=== PATIENT | female | born 1990 | race Caucasian/White ===

== ENCOUNTER 2018-11-02 20:10 | Emergency (ER) | payer OTHER ==
--- NOTE | 2018-11-02 20:29 | PDOC ---
History of Present Illness - General Chief Complaint: Vaginal Bleeding Stated Complaint: 14 WKS/BLEEDING
[2018-11-02 20:36] VITALS: BP 116/76; PULSE 100; TEMP 98.8; BMI 35.2
[2018-11-02 21:26] LABS: BASO % 0.2 % (0-2.0); EOS % 0.5 % (0-4.5); HEMATOCRIT 35.4 % (32.4-45.2); HEMOGLOBIN 11.5 GM/dL (10.7-15.3); LYMPH % 9.3 % (8-40); MCH 25.6 pg (25.7-33.7); MCHC 32.6 g/dl (32.0-36.0); MEAN CELL VOLUME 78.6 fl (80-96); MEAN PLT VOLUME 7.7 fl (7.5-11.1); MONO % 3.9 % (3.8-10.2); NEUT % 86.1 % (42.8-82.8); PLATELET COUNT 370 K/MM3 (134-434); RDW 15.9 % (11.6-15.6); WHITE BLOOD COUNT 13.6 K/mm3 (4.0-10.0)
[2018-11-02 22:39] LABS: EPI CELLS 3.2 /HPF (0-5/HPF); HYALINE CASTS 2 /lpf (0-8); URINE APPEARANCE CLOUDY; URINE BILIRUBIN NEGATIVE (NEGATIVE); URINE COLOR RED; URINE GLUCOSE (UA) NEGATIVE (NEGATIVE); URINE KETONE 1+ (NEGATIVE); URINE LEUK ESTERASE 2+ (NEGATIVE); URINE NITRITE NEGATIVE (NEGATIVE); URINE PROTEIN NEGATIVE (NEGATIVE); URINE RBC 1402 /hpf (0-4); URINE UROBILINOGEN 0.2 mg/dL (0.2-1.0); URINE WBC 24 /hpf (0-5)
[2018-11-02] MEDS ORDERED: ACETAMINOPHEN 500 MG TABLET (FP) PO STA (23:34)
[2018-11-02] MEDS ORDERED: CEPHALEXIN MONOHYDRATE 500 MG CAPSULE (UD) ONE (23:34)
[2018-11-02] MEDS ORDERED: ACETAMINOPHEN 325 MG TABLET (FP) ONE (23:34)
--- NOTE | 2018-11-02 23:47 | PDOC ---
Documentation entered by India Marino SCRIBE, acting as scribe for Tran Serna MD. Tran Serna MD: This documentation has been prepared by the anaibe, India Marino SCRIBE, under my direction and personally reviewed by me in its entirety. I confirm that the documentation accurately reflects all work, treatment, procedures, and medical decision making performed by me. History of Present Illness - General Chief Complaint: Vaginal Bleeding Stated Complaint: 14 WKS/BLEEDING Time Seen by Provider: 11/02/18 20:29 History Source: Patient Exam Limitations: No Limitations - History of Present Illness Initial Comments: 11/02/18 21:01 The patient is a 28-year-old female, , with no reported past medical history who presents to the emergency department with a day history of vaginal bleeding. The patient reports earlier today, she started to have abdominal cramping, followed up vaginal bleeding. The patient reports the bleeding was associated with large clot passing. Denies fever or chills. LMP: Beginning of July Allergies: NKDA Surgical history: None reported MEDICAL INTERPRETER: [facility]. Past History - Past Medical History Allergies/Adverse Reactions: Allergies Allergy/AdvReac Type Severity Reaction Status Date / Time No Known Allergies Allergy Verified 11/02/18 20:31 Home Medications: Ambulatory Orders Cephalexin Monohydrate [Keflex -] 500 mg PO BID #14 capsule 11/02/18 Review of Systems - Review of Systems Able to Perform ROS?: Yes Comments:: 11/02/18 21:07 CONSTITUTIONAL: Absent: fever, chills, diaphoresis, generalized weakness, malaise, loss of appetite HEENT: Absent: rhinorrhea, nasal congestion, throat pain, throat swelling, difficulty swallowing, mouth swelling, ear pain, eye pain, visual Changes CARDIOVASCULAR: Absent: chest pain, syncope, palpitations, irregular heart rate, lightheadedness , peripheral edema RESPIRATORY: Absent: cough, shortness of breath, dyspnea with exertion, orthopnea, wheezing, stridor, hemoptysis GASTROINTESTINAL: Absent: abdominal pain, abdominal distension, nausea, vomiting, diarrhea, constipation, melena, hematochezia GENITOURINARY: +vaginal bleeding. Absent: dysuria, frequency, urgency, hesitancy, hematuria, flank pain, genital pain MUSCULOSKELETAL: Absent: myalgia, arthralgia, joint swelling SKIN: Absent: rash, itching, pallor HEMATOLOGIC/IMMUNOLOGIC: Absent: easy bleeding, easy bruising, lymphadenopathy, frequent infections ENDOCRINE: Absent: unexplained weight gain, unexplained weight loss, heat intolerance, cold intolerance NEUROLOGIC: Absent: headache, focal weakness or paresthesias, dizziness, unsteady gait, seizure, mental status changes, bladder or bowel incontinence PSYCHIATRIC: Absent: anxiety, depression, suicidal or homicidal ideation, hallucinations. *Physical Exam - Vital Signs Last Vital Signs Temp Pulse Resp BP Pulse Ox 98.8 F 100 H 17 116/76 100 11/02/18 20:20 11/02/18 20:20 11/02/18 20:20 11/02/18 20:20 11/02/18 20:20 - Physical Exam Comments: 11/02/18 21:01 GENERAL: Well developed, well nourished. Awake and alert. No acute distress. HEENT: Normocephalic, atraumatic. PERRLA, EOMI. No conjunctival pallor. Sclera are non- icteric. Moist mucous membranes. Oropharynx is clear. NECK: Supple. Full ROM. No JVD. Carotid pulses 2+ and symmetric, without bruits. No thyromegaly. No lymphadenopathy. CARDIOVASCULAR: +tachycardia Regular rate. No murmurs, rubs, or gallops. Distal pulses are 2+ and symmetric. PULMONARY: No evidence of respiratory distress. Lungs clear to auscultation bilaterally. No wheezing, rales or rhonchi. ABDOMINAL: Soft. Non-tender. Non-distended. No rebound or guarding. : +Vaginal bleeding with clot passing. MUSCULOSKELETAL Normal range of motion at all joints. No bony deformities or tenderness. No CVA tenderness. EXTREMITIES: No cyanosis. No clubbing. No edema. No calf tenderness. SKIN: Warm and dry. Normal capillary refill. No rashes. No jaundice. NEUROLOGICAL: Alert, awake, appropriate. Cranial nerves 2-12 intact. PSYCHIATRIC: Cooperative. Good eye contact. Appropriate mood and affect. ED Treatment Course - LABORATORY CBC & Chemistry Diagram: 11/02/18 21:10 - ADDITIONAL ORDERS Additional order review: Laboratory Results 11/02/18 11/02/18 11/02/18 22:27 21:10 21:10 Beta HCG, Quant .4 Urine Color Red Urine Appearance Cloudy Urine pH 7.0 Ur Specific [place] 1.007 L Urine Protein Negative Urine Glucose (UA) Negative Urine Ketones 1+ H Urine Blood 3+ H Urine Nitrite Negative Urine Bilirubin Negative Urine Urobilinogen 0.2 Ur Leukocyte Esterase 2+ H Urine WBC (Auto) 24 Urine RBC (Auto) 1402 Urine Casts (Auto) 2 U Epithel Cells (Auto) 3.2 Urine Bacteria (Auto) 10.0 Blood Type B POSITIVE Antibody Screen Negative 11/02/18 21:10 RBC 4.50 MCV 78.6 L MCHC 32.6 RDW 15.9 H MPV 7.7 Neutrophils % 86.1 H Lymphocytes % 9.3 Monocytes % 3.9 Eosinophils % 0.5 Basophils % 0.2 - RADIOLOGY Radiology Studies Ordered: Category Date Time Status TRANSVAGINAL US PREG [US] Stat Ultrasound 11/02/18 20:33 Taken Medical Decision Making - Medical Decision Making 11/02/18 23:02 -year-old female states that she passed tissue earlier today at home. this 28 yo female reports LMP in July and sees assistant credit manager at [facility] across the [address] PMH : blood type B positive cbc no significant anemia UA + hemauria , +2 leuk,24,000 wbc 11/02/18 23:35 transvaginal ultrasound shows a thickened endometrium, but no intrauterine at this time. Small right ovarian cyst. Clinical, laboratory correlation follow-up ultrasound is recommended. There is no evidence of adnexal masses or free pelvic fluid collections 11/02/18 23:37 the pt reports having an MEDICAL INTERPRETER ultrasound within the month that showed an intrauterine . Given her symptoms of cramping and passing tissue , this is a mscarriage pt vaginal bleeding is controlled, no further clots passed while in ED She'll be referred back to her MEDICAL INTERPRETER imp miscarriage/threatened AB, UTI RX keflex *DC/Admit/Observation/Transfer Diagnosis at time of Disposition: Threatened , Spontaneous miscarriage - Discharge Dispostion Disposition: HOME Condition at time of disposition: Good - Prescriptions Prescriptions: Cephalexin Monohydrate [Keflex -] 500 mg PO BID #14 capsule - Referrals Referrals: Roxy Murphy DO [Staff Physician] - - Patient Instructions Printed Discharge Instructions: DI for Miscarriage, DI for Threatened Additional Instructions: please call your assistant credit manager tomorrow for a follow up appointment please brass pickler your antibiotics at your pharmacy Return for heavy vaginal bleeding - Post Discharge Activity
== END 2018-11-02 23:48 | disposition home or self-care (01) ==
LOC: JER 20:10
DX: O26.892 Other specified pregnancy related conditions, second trimester (principal); O02.1 Missed abortion; O23.42 Unspecified infection of urinary tract in pregnancy, second trimester; O34.82 Maternal care for other abnormalities of pelvic organs, second trimester; N83.291 Other ovarian cyst, right side; Z3A.14 14 weeks gestation of pregnancy
CPT/HCPCS: 36415; 76817-TC; 81003; 84702; 85025; 86850; 86900; 86901; 99282-25

== ENCOUNTER 2018-11-06 17:09 | Emergency (ER) | payer OTHER ==
[2018-11-06 17:30] VITALS: BMI 33.2
--- NOTE | 2018-11-06 18:32 | PDOC ---
History of Present Illness - General Chief Complaint: Vaginal Bleeding Stated Complaint: MISCARRIAGE Time Seen by Provider: 11/06/18 18:09 History Source: Patient, Old Records Exam Limitations: No Limitations - History of Present Illness Travel History: No Initial Comments: 11/06/18 18:27 HISTORY OF PRESENT ILLNESS: This is a 28-year-old woman with LMP- "second week of July" who presents to the emergency department for reevaluation status post miscarriage at ~14 weeks gestation. Patient was seen and evaluated on 11/02 and this emergency department for ultrasound testing was performed to confirm loss of . That time patient was noted to have mild urinary tract infection was treated with Keflex upon discharge. Patient followed up with her SHIPPING INSPECTOR yesterday was told to come to the emergency department should her symptoms worsen. Patient presently with lower back and lower abdominal pain which she describes as a cramping similar to her usual menstrual. Only stronger. Patient reports using 5-6 pads daily which have not been saturated. She reports her vaginal bleeding is improving over the past 5 days. Patient concern for retained products of conception and is requesting a D&C at this time. No recent travel or sick contacts. PAST MEDICAL HISTORY: Denies past medical history SURGICAL HISTORY: Denies ALLERGIES: No known drug allergies REVIEW OF SYSTEMS General/Constitutional: Denies fever or chills. Denies weakness, weight change. HEENT: Denies change in vision. Denies ear pain or discharge. Denies sore throat. Cardiovascular: Denies chest pain or shortness of breath. Respiratory: Denies cough, wheezing, or hemoptysis. Gastrointestinal: Denies nausea, vomiting, diarrhea or constipation. Denies rectal bleeding. Genitourinary: see HPI Musculoskeletal: Denies joint or muscle swelling or pain. Denies neck or back pain. Skin and breasts: Denies rash or easy bruising. Neurologic: Denies headache, vertigo, loss of consciousness, or loss of sensation. Psychiatric: Denies depression or anxiety. Endocrine: Denies increased thirst. Denies abnormal weight change. Hematologic/Lymphatic: Denies anemia, easy bleeding, or history of blood clots. Allergic/Immunologic: Denies hives or skin allergy. Denies latex allergy. PHYSICAL EXAM General Appearance: Well-appearing, appropriately dressed. No apparent distress , no intoxication. HEENT: EOMI, PERRLA, normal ENT inspection, normal voice, TMs normal, pharynx normal. No conjunctival pallor. No photophobia, scleral icterus. Neck: Supple. Trachea midline. No tenderness, rigidity, carotid bruit, stridor , lymphadenopathy, or thyromegaly. Respiratory/Chest: Lungs CTAB. No shortness of breath, chest tenderness, respiratory distress, accessory muscle use. No crackles, rales, rhonchi, stridor , wheezing, dullness Cardiovascular: RRR. S1, S2. No JVD, murmur, bradycardia, tachycardia. Vascular Pulses: Dorsalis-Pedis (R): 2+, Dorsalis-Pedis (L): 2+ Gastrointestinal/Abdominal: Normal bowel sounds. Abdomen soft, non-distended. No tenderness or rebound tenderness. No organomegaly, pulsatile mass, guarding, hernia, hepatomegaly, splenomegaly. Lymphatic: No adenopathy, tenderness. Musculoskeletal/Extremities: Normal inspection. FROM of all extremities, normal capillary refill. Pelvis Stable. No CVA tenderness. No tenderness to extremities, pedal edema, swelling, erythema or deformity. Integumentary: Appropriate color, dry, warm. No cyanosis, erythema, jaundice or rash Neurologic: internal controls consultant II-XII intact. Fully oriented, alert. Appropriate mood/affect. Motor strength 5/5. No appreciable EOM palsy, facial droop or sensory deficit. Past History - Past Medical History Allergies/Adverse Reactions: Allergies Allergy/AdvReac Type Severity Reaction Status Date / Time No Known Allergies Allergy Verified 11/02/18 20:31 Home Medications: Ambulatory Orders Cephalexin Monohydrate [Keflex -] 500 mg PO BID #14 capsule 11/02/18 COPD: No - Reproductive History (#): 1 Para: 0 Therapeutic (s) & number: No Spontaneous : 0 - Immunization History Immunization Up to Date: No - Psycho Social/Smoking Cessation Hx Smoking History: Never smoked Have you smoked in the past 12 months: No Information on smoking cessation initiated: No Hx Alcohol Use: No Drug/Substance Use Hx: No *Physical Exam - Vital Signs Last Vital Signs Temp Pulse Resp BP Pulse Ox 98.4 F 74 20 129/76 99 11/06/18 17:27 11/06/18 17:27 11/06/18 17:27 11/06/18 17:27 11/06/18 17:27 ED Treatment Course - LABORATORY CBC & Chemistry Diagram: 11/06/18 18:49 11/06/18 18:49 - RADIOLOGY Radiology Studies Ordered: Category Date Time Status TRANSVAGINAL ULTRASOUND US [US] Stat Ultrasound 11/06/18 18:24 Ordered Medical Decision Making - Medical Decision Making 11/06/18 18:30 A/P: 28-year-old woman for evaluation status post miscarriage Abdomen with suprapubic tenderness but is soft nondistended. No red flags for sepsis CBC, CMP, coagulation profile, type and screen, beta hCG Urinalysis Transvaginal ultrasound After testing has been completed, I will contact Dr. Murphy- patient's DIRECTOR OF INSTRUMENTAL MUSIC to discuss case for further recommendations. 11/06/18 20:22 Case has been discussed with Dr. Murphy who has reviewed the ultrasound images. Based on chart reviewperformed by Dr. Murphy, no further intervention is needed patient has likely passed all products of conception but may follow-up as an outpatient early next week if patient wants confirmation discussion with OB. I discussed the physical exam findings, ancillary test results and final diagnoses with the patient. I answered all of the patient's questions. The patient was satisfied with the care received and felt comfortable with the discharge plan and treatment plan. The patient will call their primary care physician within 24 hours to arrange follow-up and will return to the Emergency Department with any new, persistent or worsening symptoms. Portions of this note have been documented using voice recognition software. As a result, errors may occur in the air plant engineer process. Effort has been made to correct all grammatical and air plant engineer error, but some may have been missed. Discharge - Discharge Information Problems reviewed: No Clinical Impression/Diagnosis: Spontaneous Condition: Stable Disposition: HOME - Admission No - Follow up/Referral Referrals: Roxy Murphy DO [Primary Care Provider] - - Patient Discharge Instructions Additional Instructions: Continue antibiotics as previously prescribed. Dr. Roth has been contacted and has reviewed all laboratory and sonographic findings. You may follow-up with her next week if you have any concerns. Return to the emergency department for any new or worsening symptoms. Thank you very much for choosing us to provide your emergent health care needs. - Post Discharge Activity
[2018-11-06 19:00] LABS: BASO % 0.3 % (0-2.0); EOS % 2.3 % (0-4.5); HEMATOCRIT 35.3 % (32.4-45.2); HEMOGLOBIN 11.6 GM/dL (10.7-15.3); MCHC 32.9 g/dl (32.0-36.0); MEAN CELL VOLUME 78.9 fl (80-96); MEAN PLT VOLUME 7.7 fl (7.5-11.1); MONO % 6.3 % (3.8-10.2); NEUT % 60.1 % (42.8-82.8); PLATELET COUNT 412 K/MM3 (134-434); RBC 4.47 M/mm3 (3.60-5.2); RDW 15.7 % (11.6-15.6); WHITE BLOOD COUNT 9.1 K/mm3 (4.0-10.0)
[2018-11-06 19:12] LABS: INR 0.98 (0.83-1.09); PROTHROMBIN TIME (PATIENT) 11.6 SEC (9.7-13.0)
[2018-11-06 19:18] LABS: EPI CELLS 8.2 /HPF (0-5/HPF); HYALINE CASTS 38 /lpf (0-8); URINE APPEARANCE TURBID; URINE BACTERIA 18.1 /hpf (NEGATIVE); URINE BILIRUBIN NEGATIVE (NEGATIVE); URINE COLOR ORANGE; URINE GLUCOSE (UA) NEGATIVE (NEGATIVE); URINE KETONE NEGATIVE (NEGATIVE); URINE LEUK ESTERASE 3+ (NEGATIVE); URINE NITRITE NEGATIVE (NEGATIVE); URINE PROTEIN 1+ (NEGATIVE); URINE RBC 107 /hpf (0-4); URINE WBC 290 /hpf (0-5)
[2018-11-06 19:29] LABS: ALBUMIN 3.3 g/dl (3.4-5.0); BILIRUBIN,TOTAL 0.2 mg/dL (0.2-1); BLOOD UREA NITROGEN 13.7 mg/dL (7-18); CALCIUM 8.9 mg/dL (8.5-10.1); CREATININE 0.7 mg/dL (0.55-1.3); POTASSIUM 3.9 mmol/L (3.5-5.1); TOT PROT 7.2 g/dl (6.4-8.2)
[2018-11-06 21:13] VITALS: BP 118/68; PULSE 75; TEMP 98.5
== END 2018-11-06 21:11 | disposition home or self-care (01) ==
LOC: JER 17:09
DX: O26.892 Other specified pregnancy related conditions, second trimester (principal); O03.9 Complete or unspecified spontaneous abortion without complication; Z3A.14 14 weeks gestation of pregnancy
CPT/HCPCS: 36415; 76830-TC; 80053; 81003; 84702; 85025; 85610; 86850; 86900; 86901; 87086; 99283-25